=== PATIENT | male | born 1945 | race Caucasian/White ===

== ENCOUNTER 2017-02-14 11:14 | Inpatient (IN) | payer MEDICARE, MEDICAID ==
[~2017-02-14] VITALS: Ht 180.3 cm; Wt 103.4 kg
[~2017-02-14 11:14] MED LIST: AMLO10 PO; APIX5TAB PO; ASPI81 PO; DILT120T PO; DIOV40TA PO; DIOV80TA4 PO; OMEP40CA2 PO; OXYC1TAB36 PO; RANT150EF PO/NG; TAMS0.4C4 PO; VALS1TAB64 PO; VALS1TAB65 PO; VENTAER INH
[2017-02-14] MEDS ORDERED: ACETAMINOPHEN 325 MG TAB PO PRN (12:30)
[2017-02-14] MEDS ORDERED: ONDANSETRON HCL 4 MG/2 ML VIAL IV PUSH PRN (12:30)
[2017-02-14 14:20] VITALS: BP 182/86; PULSE 61; RESP 20; TEMP 96.3; O2SAT 98
[2017-02-14] MEDS ORDERED: ALBUTEROL SULFATE 90 MCG/ACT HFA 8 GM INHALER INH PRN (15:30)
[2017-02-14] MEDS ORDERED: ACETAMINOPHEN/HYDROcodone 325 MG/5 MG TAB PO PRN (15:30)
--- NOTE | 2017-02-14 15:36 | HHI.HP ---
[facility] Primary Care Physician Non-Staff Admission Diagnosis iliopsoas muscle hematoma Diagnoses: (1) Hematoma of thigh Diagnosis: Principal Chief Complaint: generalized weakness Travel History International Travel<30 Days: No Contact w/Intl Traveler <30 Da: No Traveled to Known Affected Are: No History of Present Illness patient is a 71 y/o male with history of atrial fibrillation - on eliquis, who was recently discharged from the hospital after he was admitted with hematoma of the left thigh. he says that he noticed some bruises of the left thigh on Sunday . he was admitted to the hospital and then he was discharged home after a couple of days. he says that this morning when he tried to go to bathroom he was so weak that he couldn't walk as much. then he decided to come back to ER. he says that his bruise on the left thigh seems to be improving. he denies any chest pain, sob,nausea, fever, chills. he has minimal to mild lower abdominal pain. Review of Systems Constitutional: COMPLAINS OF: Fatigue, DENIES: Fever, Weight loss, Chills, Night Sweats Eyes: DENIES: Blurred vision, Diplopia, Vision loss, Double Vision Ears, nose, mouth, throat: DENIES: Tinnitus, Vertigo, Throat pain, Epistaxis Respiratory: DENIES: Apneas, Cough, Snoring, Wheezing, Hemoptysis, Sputum production, Shortness of breath Cardiovascular: DENIES: Chest pain, Palpitations, Syncope, Dyspnea on Exertion , PND, Lower Extremity Edema, Orthopnea, Claudication Gastrointestinal: COMPLAINS OF: Abdominal pain, DENIES: Black stools, Bloody stools, Constipation, Diarrhea, Nausea, Vomiting, Difficulty Swallowing, Anorexia Genitourinary: DENIES: Urinary frequency, Urgency, Hematuria, Dysuria Musculoskeletal: DENIES: Joint pain, Muscle aches, Stiffness, Joint Swelling Integumentary: DENIES: Rash Neurologic: DENIES: Abnormal gait, Headache, Localized weakness, Paresthesias, Seizures, Speech Problems, Tremor, Poor Balance Psychiatric: DENIES: Anxiety, Confusion, Mood changes, Depression, Hallucinations, Agitation, Suicidal Ideation, Homicidal Ideation, Delusions Past Family Social History Past Medical History atrial fibrillation thyroid nodule carotid artery disease Past Surgical History thyroidectomy carotid endarterectomy Reported Medications valsartan cardizem flomax eliquis Allergies: Coded Allergies: CRESTOR (Verified Allergy, Severe, cramps, 02/14/17) Lipitor (Verified Allergy, Severe, cramps, 02/14/17) Lovastatin (Verified Allergy, Severe, CRAMPING, 09/10/08) Active Ordered Medications Current Medications Ondansetron HCl (Zofran Inj) 4 mg Q8HR PRN IV PUSH NAUSEA; Start 02/14/17 at 12 :30 Acetaminophen (Tylenol) 650 mg Q4H PRN PO FEVER/PAIN 1-10; Start 02/14/17 at 12 :30 Family History not relevant to this presentation. Social History no smoking or drinking. Physical Exam Physical Exam GENERAL: This is a well-nourished, well-developed patient, in no apparent distress. SKIN: bruise noted on the left thigh HEAD: Atraumatic. Normocephalic. No temporal or scalp tenderness. EYES: Pupils equal round and reactive. Extraocular motions intact. No scleral icterus. No injection or drainage. ENT: Nose without bleeding, purulent drainage or septal hematoma. Throat without erythema, tonsillar hypertrophy or exudate. Uvula midline. Airway patent. NECK: Trachea midline. No JVD or lymphadenopathy. Supple, nontender, no meningeal signs. CARDIOVASCULAR: Regular rate and rhythm without murmurs, gallops, or rubs. RESPIRATORY: Clear to auscultation. Breath sounds equal bilaterally. No wheezes , rales, or rhonchi. GASTROINTESTINAL: Abdomen soft, non-tender, nondistended. No hepato-splenomegaly , or palpable masses. No guarding. MUSCULOSKELETAL: hematoma noted on the left thigh. NEUROLOGICAL: Awake and alert. Cranial nerves II through XII intact. Motor and sensory grossly within normal limits. Five out of 5 muscle strength in all muscle groups. Normal speech. Assessment and Plan Assessment and Plan A/P - generalized weakness- will consult PT and case management -hematoma of the left thigh- hold eliquis for now- will obtain the medical record from [facility] -elevated TSH likely due to hypothyroidism - s/p thyroidectomy; check free T4 and start levothyroxine-pending the result -atrial fibrillation; resume cardizem- hold eliquis due to hematoma -pericardial effusion; check echo -renal insufficiency with unknown duration- will monitor -DVT prophylaxis with SCD's Discussed Condition With the patient, ER physician and the RN. Physician Certification 2 Midnight Certification Type: Admission for Inpatient Services Order for Inpatient Services The services are ordered in accordance with Medicare regulations or non- Medicare payer requirements, as applicable. In the case of services not specified as inpatient-only, they are appropriately provided as inpatient services in accordance with the 2-midnight benchmark. Estimated LOS (days): 2 days is the estimated time the patient will need to remain in the hospital, assuming treatment plan goals are met and no additional complications. Post-Hospital Plan: Not yet determined Problem Qualifiers (1) Hematoma of thigh: Brandon Pace MD Feb 14, 2017 15:36
[2017-02-14 16:52] VITALS: PULSE 60
[2017-02-14 17:00] VITALS: BP 178/92; PULSE 82; RESP 20; TEMP 97.2; O2SAT 97
[2017-02-14 18:08] LABS: HEMATOCRIT 41.5 % (39.0-51.0)
[2017-02-14] MEDS ORDERED: ENALAPRILAT 1.25 MG/ML VIAL IV PUSH PRN (19:15)
[2017-02-14 20:55] VITALS: PULSE 60
[2017-02-14] MEDS: VALSARTAN 80 MG TAB PO SCH (21:13)
[2017-02-14] MEDS: TAMSULOSIN HCL 0.4 MG CAP PO SCH (21:13)
[2017-02-14 21:15] VITALS: BP 164/85; PULSE 61; RESP 18; TEMP 96.8; O2SAT 97
[2017-02-15] VITALS (7 sets, daily range): BP systolic 134–174; BP diastolic 80–91; PULSE 59–68; RESP 18–20; TEMP 96.1–97.3; O2SAT 94–99
--- NOTE | 2017-02-15 08:12 | ECHRPT ---
Indication: Shortness of breath CONCLUSIONS Normal left ventricular size. Mild concentric left ventricular hypertrophy. The left ventricular systolic function is normal with an estimated ejection fraction in the range of 55-60%. No regional wall motion abnormalities are present. There is a small pericardial effusion present without evidence for tamponade. BP: 170 / 89 HR: 69 Rhythm: Sinus MEASUREMENTS (Male / Female) Normal Values Technical Quality:Fair 2D ECHO LV Diastolic Diameter PLAX 5.2 cm 4.2 - 5.9 / 3.9 - 5.3 cm LV Systolic Diameter PLAX 4.0 cm IVS Diastolic Thickness 1.2 cm 0.6 - 1.0 / 0.6 - 0.9 cm LVPW Diastolic Thickness 1.2 cm 0.6 - 1.0 / 0.6 - 0.9 cm LV Relative Wall Thickness 0.5 LVOT Diameter 2.4 cm Aortic Root Diameter 3.1 cm LA Systolic Diameter LX 4.0 cm 3.0 - 4.0 / 2.7 - 3.8 cm M-MODE AV Cusp Separation MM 2.1 cm DOPPLER AV Peak Velocity 131.0 cm/s AV Peak Gradient 6.9 mmHg AV Mean Gradient 3.0 mmHg AV Velocity Time Integral 24.6 cm LVOT Peak Velocity 78.2 cm/s LVOT Peak Gradient 2.4 mmHg LVOT Velocity Time Integral 14.0 cm LVOT Cardiac Index 1878.0 cm/minm AV Area Cont Eq vti 2.6 cm AV Area Cont Eq pk 2.7 cm Mitral E Point Velocity 50.3 cm/s Mitral A Point Velocity 54.3 cm/s Mitral E to A Ratio 0.9 LV E' Lateral Velocity 3.2 cm/s Mitral E to LV E' Lateral Ratio 15.6 LV E' Septal Velocity 4.2 cm/s Mitral E to LV E' Septal Ratio 12.0 TR Peak Velocity 221.0 cm/s TR Peak Gradient 19.5 mmHg PV Peak Velocity 57.9 cm/s PV Peak Gradient 1.3 mmHg FINDINGS LEFT VENTRICLE Normal left ventricular size. Mild concentric left ventricular hypertrophy. The left ventricular systolic function is normal with an estimated ejection fraction in the range of 55-60%. No regional wall motion abnormalities are present. This study was not technically sufficient to allow for evaluation of left ventricular diastolic func tion. RIGHT VENTRICLE Normal right ventricular size and systolic function. LEFT ATRIUM The left atrial size is normal. RIGHT ATRIUM The right atrial size is normal. ATRIAL SEPTUM The interatrial septum not well visualized. AORTA The aortic root and proximal ascending aorta are normal in size on limited imaging. MITRAL VALVE Structurally normal mitral valve. Trace mitral valve regurgitation. AORTIC VALVE The aortic valve is not well visualized. No aortic valve stenosis or regurgitation. TRICUSPID VALVE Structurally normal tricuspid valve. No tricuspid valve stenosis. Trace tricuspid regurgitation. Nor mal estimated pulmonary pressures. PULMONARY VALVE The pulmonary valve is not well visualized. VESSELS The inferior vena cava is normal in size. There is greater than 50% respiratory change in dimension of the inferior vena cava (normal). PERICARDIUM There is a small pericardial effusion present without vidence for tamponade. The pericardial effusio n appears to be curcumferencial with fibrinous strands within the pericardial cavity. David Milner MD, FACC (Electronically Signed) Final Date:15 February 2017 08:11
[2017-02-15] MEDS: DILTIAZEM-CD 120 MG CAP ER PO SCH (08:53)
[2017-02-15] MEDS: VALSARTAN 160 MG TAB PO SCH (08:53)
[2017-02-15] MEDS: PANTOPRAZOLE SOD 40 MG DELAYED RELEASE TAB PO SCH (08:53)
[2017-02-15 11:21] LABS: AUTOMATED NEUTROPHIL # 5.1 TH/MM3 (1.8-7.7); BASOPHIL # 0.1 TH/MM3 (0-0.2); BASOPHIL % 0.8 % (0.0-2.0); EOSINOPHIL # 0.3 TH/MM3 (0-0.4); EOSINOPHIL % 3.9 % (0.0-4.0); HEMATOCRIT 43.1 % (39.0-51.0); HEMO FLAGS DIFF FINAL; LYMPH % 18.1 % (9.0-44.0); LYMPHOCYTE # 1.3 TH/MM3 (1.0-4.8); MEAN CELL VOLUME 83.1 FL (80.0-100.0); MEAN CORPUSCULAR HEMOGLOBIN 27.1 PG (27.0-34.0); MEAN CORPUSCULAR HGB CONC 32.6 % (32.0-36.0); MONO % 6.6 % (0.0-8.0); NEUT % 70.6 % (16.0-70.0); PLATELET COUNT 273 TH/MM3 (150-450); RED BLOOD COUNT 5.18 MIL/MM3 (4.50-5.90); WHITE BLOOD COUNT 7.2 TH/MM3 (4.0-11.0)
[2017-02-15 11:50] LABS: BICARBONATE 31.9 MEQ/L (21.0-32.0)
--- NOTE | 2017-02-15 11:57 | HHI.PR ---
Subjective Remarks resting comfortably with no distress. no new complaints. d/w the RN and no acute issues over night. Objective Vitals Vital Signs Date Time Temp Pulse Resp B/P Pulse Ox O2 Delivery O2 Flow Rate FiO2 02/15/17 08:00 96.7 61 20 149/80 97 02/15/17 04:15 96.7 62 18 153/91 96 02/15/17 00:00 96.7 60 18 158/87 94 02/14/17 21:15 96.8 61 18 164/85 97 02/14/17 20:55 60 02/14/17 17:00 97.2 82 20 178/92 97 02/14/17 16:52 60 02/14/17 14:20 96.3 61 20 182/86 98 I/O 02/14/17 02/14/17 02/14/17 02/15/17 02/15/17 02/15/17 07:00 15:00 23:00 07:00 15:00 23:00 Intake Total 240 ml 240 ml Balance 240 ml 240 ml Intake Oral 240 ml 240 ml # Voids 2 2 1 # Bowel Movements 0 Result Diagram: 02/15/17 1100 02/15/17 1100 Objective Remarks GENERAL: This is a well-nourished, well-developed patient, in no apparent distress. CARDIOVASCULAR: Regular rate and regular rhythm without murmurs, gallops, or rubs. RESPIRATORY: Clear to auscultation. Breath sounds equal bilaterally. No wheezes , rales, or rhonchi. GASTROINTESTINAL: Abdomen soft, non-tender, nondistended. Normal, active bowel sounds MUSCULOSKELETAL: Extremities without clubbing, cyanosis, or edema. NEURO: Alert & Oriented x4 to person, place, time, situation. Moves all ext x4 skin; hematoma of the left thigh seems to be improving. Procedures none Medications and IVs Current Medications Ondansetron HCl (Zofran Inj) 4 mg Q8HR PRN IV PUSH NAUSEA; Start 02/14/17 at 12 :30 Acetaminophen (Tylenol) 650 mg Q4H PRN PO FEVER/PAIN <5; Start 02/14/17 at 12: 30 Acetaminophen/ Hydrocodone Bitart ([place] 5-325 Mg) 1 tab Q6H PRN PO PAIN >5; Start 02/14/17 at 15:30 Albuterol Sulfate (Proair Hfa Inh) 2 puff Q4H PRN INH SHORTNESS OF BREATH; Start 02/14/17 at 15:30 Tamsulosin HCl (Flomax) 0.4 mg HS PO Last administered on 02/14/17 21:13; Start 02/14/17 at 21:00 Valsartan (Diovan) 80 mg HS PO Last administered on 02/14/17 21:13; Start at 21:00 Valsartan (Diovan) 160 mg DAILY PO Last administered on 02/15/17 08:53; Start 02/15/17 at 09:00 Diltiazem HCl (Cardizem Cd) 120 mg DAILY PO Last administered on 02/15/17 08: 53; Start 02/15/17 at 09:00 Pantoprazole Sodium (Protonix) 40 mg DAILY PO Last administered on 02/15/17 08 :53; Start 02/15/17 at 09:00 Enalaprilat (Vasotec Inj) 1.25 mg Q8H PRN IV PUSH BP > 180/100; Start at 19:15 A/P Assessment and Plan A/P - generalized weakness- consulted PT and case management -hematoma of the left thigh- hold eliquis for now-seems to be improving. will obtain the medical record from [facility] -elevated TSH likely due to hypothyroidism - s/p thyroidectomy; start levothyroxine- TSH in 4-6 weeks. -atrial fibrillation; resume cardizem- hold eliquis due to hematoma -pericardial effusion; echo with small pericardial effusion with no tamponade. -renal insufficiency with unknown duration- stable- will monitor -hypokalemia- will replace -DVT prophylaxis with SCD's Discharge Planning possible dc home tomorrow if stable. Brandon Pace MD Feb 15, 2017 11:57
[2017-02-15] MEDS ORDERED: POTASSIUM CHLORIDE 10 MEQ CONTROLLED RELEASE TAB PO ONE (12:00)
[2017-02-15] MEDS: LEVOTHYROXINE SODIUM 25 MCG TAB PO SCH (12:54)
[2017-02-15] MEDS: TAMSULOSIN HCL 0.4 MG CAP PO SCH (20:40)
[2017-02-15] MEDS: VALSARTAN 80 MG TAB PO SCH (20:40)
[2017-02-16] VITALS: BP 121/82; PULSE 62; RESP 18; TEMP 97.4; O2SAT 98
[2017-02-16 04:00] VITALS: BP 130/81; PULSE 60; RESP 18; TEMP 97; O2SAT 96
[2017-02-16] MEDS: LEVOTHYROXINE SODIUM 25 MCG TAB PO SCH (05:58)
[2017-02-16 08:00] VITALS: BP 130/79; PULSE 102; PULSE 72; RESP 20; TEMP 97.6; O2SAT 97
[2017-02-16] MEDS: VALSARTAN 160 MG TAB PO SCH (08:48)
[2017-02-16] MEDS: PANTOPRAZOLE SOD 40 MG DELAYED RELEASE TAB PO SCH (08:48)
[2017-02-16] MEDS: DILTIAZEM-CD 120 MG CAP ER PO SCH (08:48)
[2017-02-16 09:12] LABS: BICARBONATE 32.1 MEQ/L (21.0-32.0); POTASSIUM 3.7 MEQ/L (3.5-5.1)
[2017-02-16 12:00] VITALS: BP 152/81; PULSE 59; RESP 18; TEMP 98.2; O2SAT 96
--- NOTE | 2017-02-16 12:31 | HHI.PR ---
Subjective Remarks walking in the room with no complaints. says that he feels much better and feels stronger today. no new complaints. Objective Vitals Vital Signs Date Time Temp Pulse Resp B/P Pulse Ox O2 Delivery O2 Flow Rate FiO2 02/16/17 08:00 97.6 102 20 130/79 97 02/16/17 04:00 97.0 60 18 130/81 96 02/16/17 00:00 97.4 62 18 121/82 98 02/15/17 20:08 59 02/15/17 20:00 97.3 68 18 134/80 99 02/15/17 16:00 96.2 64 20 174/89 95 I/O 02/15/17 02/15/17 02/15/17 02/16/17 02/16/17 02/16/17 07:00 15:00 23:00 07:00 15:00 23:00 Intake Total 720 ml 360 ml 240 ml Output Total 350 ml Balance 720 ml 360 ml -110 ml Intake Oral 720 ml 360 ml 240 ml Output Urine Total 350 ml # Voids 1 3 2 # Bowel Movements 2 Result Diagram: 02/15/17 1100 02/16/17 0804 Objective Remarks GENERAL: This is a well-nourished, well-developed patient, in no apparent distress. CARDIOVASCULAR: Regular rate and regular rhythm without murmurs, gallops, or rubs. RESPIRATORY: Clear to auscultation. Breath sounds equal bilaterally. No wheezes , rales, or rhonchi. GASTROINTESTINAL: Abdomen soft, non-tender, nondistended. Normal, active bowel sounds MUSCULOSKELETAL: Extremities without clubbing, cyanosis, or edema. NEURO: Alert & Oriented x4 to person, place, time, situation. Moves all ext x4 skin; hematoma of the left thigh continues to improve. Procedures none Medications and IVs Current Medications Ondansetron HCl (Zofran Inj) 4 mg Q8HR PRN IV PUSH NAUSEA; Start 02/14/17 at 12 :30 Acetaminophen (Tylenol) 650 mg Q4H PRN PO FEVER/PAIN <5; Start 02/14/17 at 12: 30 Acetaminophen/ Hydrocodone Bitart ([place] 5-325 Mg) 1 tab Q6H PRN PO PAIN >5; Start 02/14/17 at 15:30 Albuterol Sulfate (Proair Hfa Inh) 2 puff Q4H PRN INH SHORTNESS OF BREATH; Start 02/14/17 at 15:30 Tamsulosin HCl (Flomax) 0.4 mg HS PO Last administered on 02/15/17 20:40; Start 02/14/17 at 21:00 Valsartan (Diovan) 80 mg HS PO Last administered on 02/15/17 20:40; Start at 21:00 Valsartan (Diovan) 160 mg DAILY PO Last administered on 02/16/17 08:48; Start 02/15/17 at 09:00 Diltiazem HCl (Cardizem Cd) 120 mg DAILY PO Last administered on 02/16/17 08: 48; Start 02/15/17 at 09:00 Pantoprazole Sodium (Protonix) 40 mg DAILY PO Last administered on 02/16/17 08 :48; Start 02/15/17 at 09:00 Enalaprilat (Vasotec Inj) 1.25 mg Q8H PRN IV PUSH BP > 180/100 Last administered on 02/15/17 17:49; Start 02/14/17 at 19:15 Levothyroxine Sodium (Synthroid) 25 mcg DAILY@0600 PO Last administered on 02/16 05:58; Start 02/15/17 at 12:00 Potassium Chloride (KCl) 40 meq ONCE ONCE PO Last administered on 02/15/17 12 :55; Start 02/15/17 at 12:00; Stop 02/15/17 at 12:24; Status DC A/P Assessment and Plan A/P - generalized weakness- improved- consulted PT and case management -hematoma of the left thigh- -has much improved. -elevated TSH likely due to hypothyroidism - s/p thyroidectomy; start levothyroxine- TSH in 4-6 weeks. -atrial fibrillation; resumed cardizem- on eliquis. -pericardial effusion; echo with small pericardial effusion with no tamponade. d/w cardiology and recommended repeated echo in 2-3 weeks as outpatient- this was d/w the patient as well. -renal insufficiency with unknown duration-likley chronic with renal cysts- renal function remains stable- f/u as outpatient. -hypokalemia-replaced. -DVT prophylaxis with SCD's Discharge Planning dc home today. see med list. f/u with pcp. d/w the patient. Brandon Pace MD Feb 16, 2017 12:31
[2017-02-16] MEDS ORDERED: LEVO25TA4 PO (12:32)
--- NOTE | 2017-02-16 12:32 | HHI.DCPOC ---
Discharge Care Plan Diagnosis: (1) Hematoma of thigh Your Health Problems Are: Bleeding Tendency Goals to Promote Your Health * To prevent worsening of your condition and complications * To maintain your health at the optimal level Directions to Meet Your Goals Take your medications as prescribed Follow your dietary instruction Follow activity as directed Keep your appointments as scheduled Take your immunizations and boosters as scheduled If your symptoms worsen call your PCP, if no PCP go to Urgent Care Center or Emergency Room Smoking is Dangerous to Your Health. Avoid second hand smoke Call the 24-hour hour crisis hotline for domestic abuse at Brandon Pace MD Feb 16, 2017 12:32
--- NOTE | 2017-02-16 12:33 | HHI.DS ---
Discharge Summary Admission Date Feb 14, 2017 at 14:25 Discharge Date: Feb 16, 2017 Admitting Diagnosis iliopsoas muscle hematoma (1) Hematoma of thigh ICD Code: S70.10XA Diagnosis: Principal Procedures none Brief History - From Admission patient is a 71 y/o male with history of atrial fibrillation - on eliquis, who was recently discharged from the hospital after he was admitted with hematoma of the left thigh. he says that he noticed some bruises of the left thigh on Sunday . he was admitted to the hospital and then he was discharged home after a couple of days. he says that this morning when he tried to go to bathroom he was so weak that he couldn't walk as much. then he decided to come back to ER. he says that his bruise on the left thigh seems to be improving. he denies any chest pain, sob,nausea, fever, chills. he has minimal to mild lower abdominal pain. CBC/BMP: 02/15/17 1100 02/16/17 0804 Significant Findings Laboratory Tests Test 02/14/17 02/15/17 02/16/17 17:20 11:00 08:04 Free Thyroxine 0.11 NG/DL (0.76-1.46) Neutrophils (%) (Auto) 70.6 % (16.0-70.0) Potassium Level 3.0 MEQ/L (3.5-5.1) Blood Urea Nitrogen 19 MG/DL (7-18) 20 MG/DL (7-18) Creatinine 1.86 MG/DL 1.88 MG/DL (0.60-1.30) (0.60-1.30) Estimat Glomerular Filtration 36 ML/MIN (>89) 36 ML/MIN (>89) Rate Carbon Dioxide Level 32.1 MEQ/L (21.0-32.0) PE at Discharge GENERAL: This is a well-nourished, well-developed patient, in no apparent distress. CARDIOVASCULAR: Regular rate and regular rhythm without murmurs, gallops, or rubs. RESPIRATORY: Clear to auscultation. Breath sounds equal bilaterally. No wheezes , rales, or rhonchi. GASTROINTESTINAL: Abdomen soft, non-tender, nondistended. Normal, active bowel sounds MUSCULOSKELETAL: Extremities without clubbing, cyanosis, or edema. NEURO: Alert & Oriented x4 to person, place, time, situation. Moves all ext x4 skin; hematoma of the left thigh continues to improve. Hospital Course - generalized weakness- improved- consulted PT and case management -hematoma of the left thigh- -has much improved. -elevated TSH likely due to hypothyroidism - s/p thyroidectomy; start levothyroxine- TSH in 4-6 weeks. -atrial fibrillation; resumed cardizem- on eliquis. -pericardial effusion; echo with small pericardial effusion with no tamponade. d/w cardiology and recommended repeated echo in 2-3 weeks as outpatient- this was d/w the patient as well. -renal insufficiency with unknown duration with renal cysts-renal function remains stable- f/u as outpatient. -hypokalemia-replaced. -DVT prophylaxis with SCD's Pt Condition on Discharge: Good Discharge Disposition: Discharge Home Discharge Time: <= 30 minutes Discharge Instructions DIET: Follow Instructions for: Heart Healthy Diet Activities you can perform: Regular-No Restrictions Follow up Referrals: PCP Follow-up New Medications: Levothyroxine (Levothyroxine) 25 Mcg Tab 25 MCG PO DAILY@0600 hypothyroidism Days 30 Ref 0 TAB Continued Medications: Albuterol 18 GM Inh (Ventolin Hfa 18 GM Inh) 90 Mcg/Act Aer 2 PUFF INH Q4H PRN SHORTNESS OF BREATH #1 Ref 0 INHALER Apixaban (Eliquis) 5 Mg Tab 5 MG PO BID Blood Clot Prevention #60 Ref 0 TAB Diltiazem (Diltiazem) 120 Mg Tab 120 MG PO QID Angina #120 Ref 0 TAB Omeprazole (Omeprazole) 40 Mg Cap 40 MG PO DAILY #30 Ref 0 CAP Oxycodone-Acetaminophen (Oxycodone-Acetaminophen) 10-325 mg Tab 1 TAB PO Q4HR Pain Management Ref 0 TAB Tamsulosin (Tamsulosin) 0.4 Mg Cap 0.4 MG PO HS Manage Prostate Problems #30 Ref 0 CAP Valsartan (Valsartan) 160 Mg Tab 160 MG PO DAILY #30 Ref 0 TAB Valsartan (Valsartan) 80 Mg Tab 80 MG PO DAILY #30 Ref 0 TAB Brandon Pace MD Feb 16, 2017 12:32
== END 2017-02-16 13:30 | disposition home or self-care (01) | DRG 316 ==
LOC: NEDDLT 14:14 → HOCA 14:25
PROVIDERS: ADMIT Internal Medicine; ATTEND Internal Medicine
DX: I31.3 Pericardial effusion (noninflammatory) (principal); I48.91 Unspecified atrial fibrillation; N28.1 Cyst of kidney, acquired; N28.9 Disorder of kidney and ureter, unspecified; R53.1 Weakness; E87.6 Hypokalemia; E89.0 Postprocedural hypothyroidism; M79.81 Nontraumatic hematoma of soft tissue
CPT/HCPCS: 70450; 71010; 74176; 80048; 80053; 81001; 83605; 83880; 84439; 84443; 84484; 85014; 85018; 85025; 85379; 85610; 85730; 93005; 93306; 99281

== ENCOUNTER 2018-10-08 16:37 | Observation (INO) ==
[2018-10-09 01:01] VITALS: TEMP 97.8; O2SAT 95
[2018-10-09] MEDS ORDERED: Acetaminophen 500 MG Tablet PO PRN (01:16)
[2018-10-09 01:47] LABS: Creatine Kinase 56 U/L (39-308)
[2018-10-09 05:06] LABS: Creatine Kinase 50 U/L (39-308)
[2018-10-09 06:04] VITALS: BP 141/76; PULSE 72; RESP 18
--- NOTE | 2018-10-09 20:50 | ECG ---
Date Performed: 10/09/2018 Time Performed: 04:11:21 PTAGE: 73 years EKG: ELECTRONIC ATRIAL PACEMAKER SEPTAL MYOCARDIAL INFARCTION PROBABLE LATERAL MYOCARDIAL INFARC TION ACUTE [place] PREVIOUS TRACING 10/09/2018, 12:37: Compared to previous tracing, INTERVAL RESOLUTION OF S T ELEVATION IN LEAD aVL WITH PERSISTENT LATERAL TWIs DOCTOR: Tay Khan Interpretating Date/Time 10/09/2018 20:48:39
--- NOTE | 2018-10-09 20:54 | ECG ---
Date Performed: 10/09/2018 Time Performed: 00:37:04 PTAGE: 73 years EKG: ELECTRONIC ATRIAL PACEMAKER SEPTAL MYOCARDIAL INFARCTION POSSIBLE LATERAL MYOCARDIAL INFARC TION ACUTE [place] DOCTOR: Tay Khan Interpretating Date/Time 10/09/2018 20:52:45
== END 2018-10-09 06:34 | disposition left against medical advice (07) ==
LOC: NEPGCP 23:00 → NEDDLT 23:00
PROVIDERS: ADMIT Internal Medicine Interventional Cardiology; ATTEND Internal Medicine Interventional Cardiology
CPT/HCPCS: 71010; 71045; 71275; 74175; 80053; 82550; 83735; 84484; 85025; 85610; 85730; 93005; 99285; G0378; Q9967